=== PATIENT | male | born 1995 | race Caucasian/White ===

== ENCOUNTER 2023-03-18 07:45 | Outpatient (CLI) | payer OTHER, SELFPAY ==
--- NOTE | 2023-03-18 08:00 | CRLHL7_ITS ---
For Patients: As a result of the Century Cures Act, medical imaging exams and procedure reports are released immediately into your electronic medical record. You may view this report before your referring provider. If you have questions, please contact your health care provider. INDICATION: Chronic sinusitis. TECHNIQUE: Thin-slice noncontrast CT of the paranasal sinuses with bone and soft tissue reconstruction. COMPARISON: None available. FINDINGS: The frontal sinuses are clear and the frontal recesses are patent. The agger nasi cells are clear. Bilateral supraorbital ethmoid air cells overlying the anterior ethmoidal arteries. Few mucosal polyps in the maxillary alveolar recesses. Bilateral middle turbinate kim bullosa. Maxillary sinuses and ethmoid air cells are clear. Ostiomeatal complexes are clear. Sphenoid sinuses and ostia are clear. Small opacified left sphenoethmoidal air cell is noted. The nasal septum is midline with no spur. There is evidence of prior left frontal craniotomy. The orbits are within normal limits. The nasopharynx and visualized oropharynx are unremarkable appearance. IMPRESSION: 1. Paranasal sinuses are essentially clear with few polyps in the maxillary alveolar recesses. 2. Supraorbital air cells overlie the anterior ethmoidal arteries. 3. Small opacified left sphenoethmoidal air cell. 4. Bilateral middle turbinate kim bullosa. 5. Evidence of prior left frontal craniotomy. Please note that all CT scans at this facility use dose modulation, iterative reconstruction, and/or weight-based dosing when appropriate to reduce radiation dose to as low as reasonably achievable. Dictated by Ajay Bloom MD @ 03/18/2023 3:51:50 PM (Electronically Signed)
== END 2023-03-18 07:46 | disposition home or self-care (01) ==
PROVIDERS: PCP Family Medicine; Visit Provider Otolaryngology
DX: J32.9 Chronic sinusitis, unspecified (principal); J33.8 Other polyp of sinus
CPT/HCPCS: 70486

== ENCOUNTER 2024-01-25 07:27 | Outpatient (CLI) | payer OTHER, SELFPAY | END 2024-01-25 07:28 | disposition home or self-care (01) | LOC: NFLDREF 01-28 10:03 | PROVIDERS: PCP Family Medicine; Referring Provider Family Medicine; Visit Provider Family Medicine | DX: E78.00 Pure hypercholesterolemia, unspecified (principal) | CPT/HCPCS: 80061 ==

== ENCOUNTER 2024-05-07 16:12 | Outpatient (CLI) | payer OTHER, SELFPAY ==
--- NOTE | 2024-05-07 16:15 | CRLHL7_ITS ---
For Patients: As a result of the Century Cures Act, medical imaging exams and procedure reports are released immediately into your electronic medical record. You may view this report before your referring provider. If you have questions, please contact your health care provider. INDICATION: Epididymitis COMPARISON: none TECHNIQUE: Dickson scale imaging was performed of the scrotum. In addition color Doppler and spectral Doppler analysis was performed of the testes. FINDINGS: The testes demonstrate normal arterial and venous blood flow on color Doppler and spectral Doppler analysis. The testes have uniform echogenicity with no evidence of a suspicious mass or area of inflammation. The right testis measures 4.7 x 2.4 x 2.5 cm in size and the left testis measures 4.5 x 2.6 x 2.8 cm. The epididymis appears normal bilaterally. No hydrocele. Mild right varicocele is suspected. IMPRESSION: Mild right varicocele is suspected. Normal testicles. Dictated by Hubert Arroyo MD @ 05/09/2024 9:28:14 AM (Electronically Signed)
== END 2024-05-07 16:13 | disposition home or self-care (01) ==
LOC: US 16:13
PROVIDERS: PCP Family Medicine; Visit Provider Family Medicine
DX: N45.1 Epididymitis (principal); I86.1 Scrotal varices
CPT/HCPCS: 76870; 93976

== ENCOUNTER 2024-11-30 14:41 | Outpatient (CLI) | payer OTHER, SELFPAY ==
--- NOTE | 2024-11-30 14:45 | CRLHL7_ITS ---
For Patients: As a result of the Century Cures Act, medical imaging exams and procedure reports are released immediately into your electronic medical record. You may view this report before your referring provider. If you have questions, please contact your health care provider. Indication: Right testicular pain. Technique: Ultrasound of the scrotum and contents. Sonographic koehler-scale images were obtained with spectral and color Doppler waveform and spectral waveform analysis of the testicles. Comparison: None. Findings: Bother testicles are normal in size and echotexture. Right testis is normal in size and measures 4.0 x 2.2 x 2.5 cm. Left testis is normal in size and measure 4.4 x 2.4 x 3.1 cm. No masses. No suspicious calcifications. Arterial and venous color Doppler blood flow and spectral waveforms are present in both testicles. Suggestion of mild right varicocele at the area of pain in inferior scrotal sac as evident by few prominent tubular anechoic vessels on Valsalva. Epididymis: Unremarkable bilaterally. Normal blood flow. Incidental note of a small left epididymal cyst measuring 4 mm. Other: No significant hydrocele. No sign of varicocele. Scrotal wall is normal. Impression: 1. No evidence of orchitis or torsion. 2. Suggestion of mild right varicocele. 3. Incidental note of small left epididymal cyst. Dictated by Alecia Garcia MD @ 11/30/2024 4:15:03 PM (Electronically Signed)
== END 2024-11-30 14:42 | disposition home or self-care (01) ==
LOC: US 14:42
PROVIDERS: PCP Family Medicine; Visit Provider Family Medicine
DX: N50.811 Right testicular pain (principal); N50.3 Cyst of epididymis
CPT/HCPCS: 76870; 87491; 87591; 93976